=== PATIENT | male | born 1990 | race Caucasian/White ===

== ENCOUNTER 2021-03-24 22:24 | Emergency (ER) | payer OTHER ==
[2021-03-25] MEDS ORDERED: NAPROXEN500 MG PO (02:37)
== END 2021-03-25 03:15 | disposition home or self-care (01) ==
LOC: ER1 22:24
DX: S93.401A Sprain of unspecified ligament of right ankle, initial encounter (principal); X50.9XXA Other and unspecified overexertion or strenuous movements or postures, initial encounter
CPT/HCPCS: 73610; 99283